=== PATIENT | female | born 1985 | race Caucasian/White ===

== ENCOUNTER → 2019-08-11 10:33 | Outpatient (BNVA) | payer BC, SELFPAY | PROVIDERS: Family Provider Physician Assistant; PCP Physician Assistant; Visit Provider Nurse Practitioner Women's Health | DX: Z01.89 Encounter for other specified special examinations (principal) | CPT/HCPCS: 84315 ==

== ENCOUNTER → 2019-08-15 10:49 | Outpatient (BNVA) | payer BC, SELFPAY | PROVIDERS: Family Provider Physician Assistant; PCP Physician Assistant; Referring Provider Nurse Practitioner Women's Health; Visit Provider Obstetrics & Gynecology | DX: Z34.91 Encounter for supervision of normal pregnancy, unspecified, first trimester (principal) | CPT/HCPCS: 76801; 76817 ==

== ENCOUNTER → 2019-08-31 11:00 | Outpatient (BNVA) | payer BC, SELFPAY | PROVIDERS: Family Provider Physician Assistant; PCP Physician Assistant; Visit Provider Obstetrics & Gynecology Female Pelvic Medicine and Reconstructive Surgery | DX: O09.891 Supervision of other high risk pregnancies, first trimester (principal); O09.291 Supervision of pregnancy with other poor reproductive or obstetric history, first trimester; Z86.32 Personal history of gestational diabetes; O20.9 Hemorrhage in early pregnancy, unspecified; Z3A.11 11 weeks gestation of pregnancy | CPT/HCPCS: 80307; 82950; 84315; 85027; 86592; 86762; 86803; 86850; 86900; 87086; 87340; 87806 ==

== ENCOUNTER → 2019-09-09 08:15 | Outpatient (BNVA) | payer BC, SELFPAY | PROVIDERS: Family Provider Physician Assistant; PCP Physician Assistant; Visit Provider Obstetrics & Gynecology Female Pelvic Medicine and Reconstructive Surgery | DX: O09.291 Supervision of pregnancy with other poor reproductive or obstetric history, first trimester (principal); Z86.32 Personal history of gestational diabetes; O09.891 Supervision of other high risk pregnancies, first trimester; O20.9 Hemorrhage in early pregnancy, unspecified; Z34.90 Encounter for supervision of normal pregnancy, unspecified, unspecified trimester; O99.810 Abnormal glucose complicating pregnancy | CPT/HCPCS: 82951; 82952 ==

== ENCOUNTER → 2019-09-12 09:24 | Outpatient (BNVA) | payer BC, SELFPAY | PROVIDERS: Family Provider Physician Assistant; PCP Physician Assistant; Visit Provider Obstetrics & Gynecology | DX: O09.891 Supervision of other high risk pregnancies, first trimester (principal); Z3A.12 12 weeks gestation of pregnancy | CPT/HCPCS: 84315; 87491; 87591; 88175 ==

== ENCOUNTER → 2019-10-05 16:16 | Outpatient (BNVA) | payer BC, MEDICAID, SELFPAY | PROVIDERS: Family Provider Physician Assistant; PCP Physician Assistant; Visit Provider Nurse Practitioner Women's Health | DX: Z01.89 Encounter for other specified special examinations (principal) | CPT/HCPCS: 84315 ==

== ENCOUNTER → 2019-11-03 08:55 | Outpatient (BNVA) | payer BC, MEDICAID, SELFPAY | PROVIDERS: Family Provider Physician Assistant; PCP Physician Assistant; Visit Provider Obstetrics & Gynecology | DX: Z36.89 Encounter for other specified antenatal screening (principal) | CPT/HCPCS: 76805 ==

== ENCOUNTER → 2019-11-08 09:43 | Outpatient (BNVA) | payer BC, MEDICAID, SELFPAY | PROVIDERS: Family Provider Physician Assistant; PCP Physician Assistant; Visit Provider Obstetrics & Gynecology | DX: O09.891 Supervision of other high risk pregnancies, first trimester (principal); O09.892 Supervision of other high risk pregnancies, second trimester; O28.3 Abnormal ultrasonic finding on antenatal screening of mother; O99.212 Obesity complicating pregnancy, second trimester; O09.292 Supervision of pregnancy with other poor reproductive or obstetric history, second trimester; Z86.32 Personal history of gestational diabetes; Z87.59 Personal history of other complications of pregnancy, childbirth and the puerperium; Z86.59 Personal history of other mental and behavioral disorders; Z3A.21 21 weeks gestation of pregnancy | CPT/HCPCS: 84315 ==

== ENCOUNTER → 2019-11-29 08:00 | Outpatient (BNVA) | payer BC, MEDICAID, SELFPAY | PROVIDERS: Family Provider Physician Assistant; PCP Physician Assistant; Visit Provider Obstetrics & Gynecology | DX: O09.892 Supervision of other high risk pregnancies, second trimester (principal); O99.810 Abnormal glucose complicating pregnancy | CPT/HCPCS: 82951; 82952; 84315 ==

== ENCOUNTER → 2019-12-27 09:49 | Outpatient (BNVA) | payer BC, MEDICAID, SELFPAY | PROVIDERS: Family Provider Physician Assistant; PCP Physician Assistant; Visit Provider Obstetrics & Gynecology | DX: O26.893 Other specified pregnancy related conditions, third trimester (principal); Z67.91 Unspecified blood type, Rh negative; O24.419 Gestational diabetes mellitus in pregnancy, unspecified control | CPT/HCPCS: 84315; 85027; 86850 ==

== ENCOUNTER → 2020-01-31 14:33 | Outpatient (BNVA) | payer BC, MEDICAID, SELFPAY | PROVIDERS: Family Provider Physician Assistant; PCP Physician Assistant; Visit Provider Obstetrics & Gynecology | DX: O09.893 Supervision of other high risk pregnancies, third trimester (principal); O24.415 Gestational diabetes mellitus in pregnancy, controlled by oral hypoglycemic drugs; O26.893 Other specified pregnancy related conditions, third trimester; Z67.91 Unspecified blood type, Rh negative; O99.213 Obesity complicating pregnancy, third trimester; Z3A.33 33 weeks gestation of pregnancy | CPT/HCPCS: 76816; 76819; 84315 ==

== ENCOUNTER → 2020-02-21 10:44 | Outpatient (BNVA) | payer BC, MEDICAID, SELFPAY | PROVIDERS: Family Provider Physician Assistant; PCP Physician Assistant; Visit Provider Obstetrics & Gynecology | DX: O09.892 Supervision of other high risk pregnancies, second trimester (principal); O24.415 Gestational diabetes mellitus in pregnancy, controlled by oral hypoglycemic drugs; Z67.91 Unspecified blood type, Rh negative | CPT/HCPCS: 84315; 87081 ==

== ENCOUNTER → 2020-02-28 10:01 | Outpatient (BNVA) | payer BC, MEDICAID, SELFPAY | PROVIDERS: Family Provider Physician Assistant; PCP Physician Assistant; Visit Provider Obstetrics & Gynecology | DX: O09.93 Supervision of high risk pregnancy, unspecified, third trimester; O24.415 Gestational diabetes mellitus in pregnancy, controlled by oral hypoglycemic drugs | CPT/HCPCS: 76816; 76819; 84315 ==

== ENCOUNTER → 2020-03-06 10:12 | Outpatient (BNVA) | payer BC, MEDICAID, SELFPAY | PROVIDERS: Family Provider Physician Assistant; PCP Physician Assistant; Visit Provider Obstetrics & Gynecology | DX: O24.415 Gestational diabetes mellitus in pregnancy, controlled by oral hypoglycemic drugs | CPT/HCPCS: 76816; 76819; 84315 ==

== ENCOUNTER → 2020-03-13 09:17 | Outpatient (BNVA) | payer BC, MEDICAID, SELFPAY | PROVIDERS: Family Provider Physician Assistant; PCP Physician Assistant; Visit Provider Obstetrics & Gynecology | DX: Z34.90 Encounter for supervision of normal pregnancy, unspecified, unspecified trimester (principal); O24.415 Gestational diabetes mellitus in pregnancy, controlled by oral hypoglycemic drugs | CPT/HCPCS: 76816; 76819 ==

== ENCOUNTER 2020-03-13 12:35 | Inpatient (IN) | payer BC, MEDICAID, SELFPAY ==
[2020-03-13] VITALS (77 sets, daily range): BP systolic 0–140; BP diastolic 0–87; PULSE 62–88; RESP 17–18; TEMP 36.6–37; O2SAT 91–99; BMI 36.0
[2020-03-13] MEDS: dextrose 5%-lactated ringers 1,000 ML 125 ML IV ×2 (13:28→22:40)
[2020-03-13 13:49] LABS: Glucose Point of Care 108 mg/dL (70-110)
[2020-03-13 13:51] LABS: Basophils % 0.1 %; Eosinophils % 0.3 %; Hematocrit 38.3 % (37.0-47.0); Hemoglobin 12.8 g/dL (11.5-15.3); Lymphocytes # 1.5 10^3/uL (0.8-4.8); Lymphocytes % 17.7 %; Mean Corpuscular HGB Conc 33.4 g/dL (30.0-36.0); Mean Corpuscular Hemoglobin 31.5 pg (28.0-34.0); Mean Corpuscular Volume 94.3 fL (81-99); Mean Platelet Volume 10.7 fL (7.4-10.4); Monocytes # 0.5 10^3/uL (0.2-0.9); Monocytes % 6.2 %; Neutrophils # 6.48 10^3/uL (1.8-7.7); Neutrophils % 75.5 %; Nucleated Red Blood Cells % 0 %; Platelet Count 223 10^3/cmm (130-400); Red Blood Count 4.06 10^6/uL (4.1-5.3); Red Cell Distribution Width 13.1 % (12.1-15.1); White Blood Count 8.6 10^3/uL (4.0-10.0)
[2020-03-13] MEDS: oxytocin 30 UNIT/500 ML BAG IV (14:15)
--- NOTE | 2020-03-13 17:38 | ANES.PREANE2 ---
Pre-Anesthetic Assessment Pre-Anesthetic Assessment: Height/Weight: Height 1.75 m Weight 110.677 kg Temp Pulse BP 97.9 F 73 128/79 03/13/20 13:02 03/13/20 17:34 03/13/20 17:34 Preop Diagnosis: IUP Proposed Procedure: Epidural Familial anesthetic complications: None Was Beta Josefina taken within 24 hours: N/A Last intake: Eating during exam Social: Social History: No alcohol and No tobacco Exam: Pre-Anes Outpt Exam: alert, oriented x 3, clear to auscultation bilaterally and regular rate & rhythm Airway: Cervical ROM: WNL MP: 2 Dentition: Full Metabolic: Metabolic: DM (gestational DM) Musc/skel: Comments: patient states she has lumbar stenosis with sciatic radiculopathy (B/L), patient informed of increased risk for epidural-associated nerve damage compared to baseline population. Agrees to proceed. Anesthetic Plan: ASA status: 2 Anesthesia: Regional (specify below) Risk of > 500 ml blood loss (7ml/kg in children): Yes, adequate IV access and fluids planned Meds/Allergies Current Medications: Current Medications Generic Name Dose Route Start Last Admin Trade Name Freq PRN Reason Stop Dose Admin Dextrose/Lactated Ringer's 1,000 mls @ 125 m ls/hr 03/13/20 13:15 03/13/20 13:28 Dextrose 5%-Lact ated Ringers IV 125 mls/hr .Q8H KVNG Administration Oxytocin 30 unit in 500 ml s @ 1 mls/hr 03/13/20 13:15 03/13/20 16:15 Pitocin IV 4 milliunit/min .Q24H KVNG 4 mls/hr Titration Protocol 1 MILLIUNIT/MIN PFSH Anesthesia PFSH: Medical History History of depression Patient denies significant medical history denies htn,dm,thyroid,dvt/pe,herpes Surgical History S/P tonsillectomy (~1994) as a child Family History Mother Hyperlipidemia Thyroid condition Hypertension Diabetes Grandmother Diabetes maternal Breast cancer maternal Stroke maternal Grandfather Hyperlipidemia maternal Hypertension maternal Denies family history of Anesthesia complication Social History Smoking and tobacco status: former smoker Quit status (tobacco): has quit using tobacco Year quit tobacco: 2011 Former quit date comment: smoked socially Alcohol intake: former Former alcohol use details: not during Other details last substance use: Denies drug use. Female Reproductive History: Date of last menstrual period: 06/14/19 : 2 Para: 1 Spontaneous abortions: No Data Anesthesia CBC & Chem 7: 03/13/20 13:10 Other Labs: Laboratory Results - last 48 hr 03/13/20 03/13/20 13:10 13:46 WBC 8.6 RBC 4.06 L Hgb 12.8 Hct 38.3 MCV 94.3 MCH 31.5 MCHC 33.4 RDW 13.1 Plt Count 223 MPV 10.7 H Neut % (Auto) 75.5 Lymph % (Auto) 17.7 [place] % (Auto) 6.2 Eos % (Auto) 0.3 Baso % (Auto) 0.1 Neut # (Auto) 6.48 Lymph # (Auto) 1.5 [place] # (Auto) 0.5 Eos # (Auto) 0.0 Baso # (Auto) 0.0 Nucleated RBC % (auto) 0 Nucleated RBCs # 0.0 POC Glucose 108 Cardiac Studies: No Data to Display
[2020-03-13 17:59] LABS: Glucose Point of Care 97 mg/dL (70-110)
[2020-03-13] MEDS: lactated ringers 1,000 ML 999 ML IV (19:19)
[2020-03-13 19:28] LABS: Glucose Point of Care 94 mg/dL (70-110)
--- NOTE | 2020-03-13 20:35 | ANES.PROC ---
Anesthesia Procedures Procedure/Date: 03/13/20 Epidural: Time Out Performed: Yes Consents Signed: Procedure Consent Consent: requested by attending/covering physician, from patient, risks and benefits reviewed and patient agrees to proceed Lumbar Level: L3-L4 Epidural position: sitting Epidural procedure: sterile prep of area, 1% lidocaine to numb the area, 18 g needle, neg for paresthesia, test dose given, 1.5% xylocaine 1:200k epi, 0.2% Ropivacaine bolus ml, placed PCEA, no systemic response, sterile dressing applied, L.U.D. no apparent complications and 0.2% Ropiavacaine @ mls/hr Additional Comments: CHARLEEN at 7cm. Cath placed 3 cm into epid space. Test dose lido 1.5% lido 5cc neg. Ropiv 0.2% 6cc and FEnt 100 mcg bolus. Pt tolerated well.
[2020-03-13 21:44] LABS: Glucose Point of Care 89 mg/dL (70-110)
[2020-03-13 23:54] LABS: Glucose Point of Care 91 mg/dL (70-110)
[2020-03-14] VITALS (28 sets, daily range): BP systolic 0–142; BP diastolic 0–72; PULSE 57–86; RESP 16–18; TEMP 36.4–37.1; O2SAT 98–99
--- NOTE | 2020-03-14 01:18 | PM.DELIVERY ---
Delivery Note: Date of delivery: March 14, 2020 Pre-delivery diagnoses: 1. Diet controlled gestational diabetes in third trimester 2. at 39-1/7 weeks gestation 3. Obesity in in third trimester 4. Rh-negative status in third trimester Post-delivery diagnoses: 1. Diet controlled gestational diabetes - delivered 2. at 39-1/7 weeks gestation 3. Obesity in - delivered 4. Rh- status in - delivered 5. Mild shoulder dystocia. 6. Viable male Procedure: Spontaneous vaginal delivery Op report anesthesia: Epidural Delivering Physician: Dr. Diogo Farmer Estimated blood loss (mL): 300 Pre-Delivery Course: Patient is a 34-year-old female 2, para 1-0-0-1 with an LMP of 06/14/2019 and an EDC of 03/20/2020 based on LMP and consistent with 9-week ultrasound, which placed her at 39-0/7 weeks gestation at the time of admission. She presented to labor and delivery at 12:35 on 03/13/2020 for induction of labor due to diet-controlled gestational diabetes. Cervix was initially 50% effaced and 4 cm dilated. She was started on Pitocin for induction. By the evening, she had become more uncomfortable and had epidural placed. By 21:01 she was 6 to 7 cm dilated with bulging membranes. Artificial rupture membranes was performed with clear fluid present. Following this, cervix shrunk to 4 cm dilation. She continued to progress and was found to be completely dilated by 00:27 on 03/14. monitoring was reassuring during the labor course. Blood sugar was monitored and with within expected ranges during labor. Delivery: Patient started pushing at 00:34 and delivered at 00:50 as a spontaneous vaginal delivery of an occiput anterior male over an intact perineum under epidural anesthesia. Following delivery of the 's head, one loop of nuchal cord was noted and reduced. The had retracted against the perineum as a turtle sign, consistent with shoulder dystocia. Trevon maneuver and suprapubic pressure was applied and with next contraction, the anterior shoulder delivered, which was the left shoulder. The rest of the baby then delivered atraumatically without difficulty. Baby was placed on the mother's abdomen where the cord was clamped. It was cut by the reported father of the baby. Baby was spontaneously crying and left in the care of the waiting nurses. Cord blood was obtained. Placenta delivered intact by simple expression at 00:50. The cervix was palpated and noted to be intact. The vagina was palpated and noted to be intact. The labia were inspected and she had a right periurethral laceration which was hemostatic and required no repair. She had a second-degree midline hymenal ring extending to perineum laceration which was repaired with 3-0 Vicryl suture. FINDINGS 1. Viable male infant weighing 9 pounds 8 ounces (4300 g) with a length of 21 inches and Apgars of 7 at 1 minute and 9 at 5 minutes. 2. Three-vessel cord with one loop of nuchal cord noted. 3. Normal-appearing placenta with an eccentric cord insertion. 4. Mild shoulder dystocia relieved with Trevon maneuver and suprapubic pressure. Post-Delivery Status: Mother and were left to recover in satisfactory condition. tubal was discussed with the patient and her partner. She is decided not to have the tubal done while in the hospital. Her and her partner are considering either her having a laparoscopic complete salpingectomy or him having a vasectomy. A&P Assessment and plan (1) Gestational diabetes mellitus, delivered, current hospitalization: Status: Acute (2) Rh negative status during in third trimester: Status: Acute (3) Obesity during , delivered: Status: Acute (4) Shoulder dystocia, delivered, current hospitalization: Status: Acute Coding Level of Care Code Acute Plugging Machine Operator for Chg Fwd Diagnoses Gestational diabetes mellitus, delivered, current hospitalization O24.429 Rh negative status during in third trimester O26.893; Z67.91 Obesity during , delivered O99.214 Shoulder dystocia, delivered, current hospitalization O66.0
[2020-03-14] MEDS: TRAMadol 50 mg Tablet PO (02:47)
[2020-03-14] MEDS: benzocaine-menthol 78 gm Canister 1 SPRAY TOPICAL (02:48)
--- NOTE | 2020-03-14 07:38 | PC.NURSE ---
Patient pushing since 33. At 004, head delivered and signs of shoulder dystocia were noticed. Per MD order, nurses placed patient in Trevon and Dominic Reed RN applied suprapubic pressure. Interventions lasted for 40 seconds and then viable baby boy was born at 0043 with apgars of 7,9. Mom and baby were both assessed and doing well.
[2020-03-14] MEDS: prenatal vitamin Capsule 1 CAP PO (08:17)
[2020-03-14] MEDS: docusate sodium 100 mg Capsule PO ×2 (08:17→19:16)
[2020-03-14 14:42] LABS: Hematocrit 30.9 % (37.0-47.0); Hemoglobin 10.4 g/dL (11.5-15.3); Mean Corpuscular HGB Conc 33.7 g/dL (30.0-36.0); Mean Corpuscular Hemoglobin 32.2 pg (28.0-34.0); Mean Corpuscular Volume 95.7 fL (81-99); Mean Platelet Volume 10.6 fL (7.4-10.4); Platelet Count 177 10^3/cmm (130-400); Red Blood Count 3.23 10^6/uL (4.1-5.3); Red Cell Distribution Width 13.2 % (12.1-15.1); White Blood Count 11.4 10^3/uL (4.0-10.0)
[2020-03-15] MEDS: acetaminophen 325 mg Tablet 650 MG PO (05:46)
[2020-03-15 05:51] VITALS: BP 146/85; PULSE 78; RESP 16; TEMP 36.7; O2SAT 100
[2020-03-15] MEDS: TRAMadol 50 mg Tablet PO (08:01)
[2020-03-15] MEDS: prenatal vitamin Capsule 1 CAP PO (09:08)
[2020-03-15] MEDS: docusate sodium 100 mg Capsule PO (09:08)
[2020-03-15 10:32] VITALS: BP 120/76; PULSE 66; RESP 15; TEMP 36.7
--- NOTE | 2020-03-15 11:16 | ANE.PACU2 ---
Inpatient post-anesthesia follow up: Airway intact: Yes Vital signs: Temperature 98.1 F Pulse Rate 66 Respiratory Rate 15 Blood Pressure 120/76 Pulse Oximetry 100 Oxygen Delivery Me thod Room Air Oxygen Flow Rate Fraction of Inspir ed Oxygen Hydration adequate: Yes Nausea and vomiting: No Pain level: 4 Mental status: Baseline Additional Comments: no headaches, no weakness/numbness in legs, no signs of infection at epidural site. Epidural numbed pelvic area, but she continued to feel her contractions with placement
--- NOTE | 2020-03-15 13:27 | PM.OBGYDC ---
Discharge Providers FURNACE ROASTER Date of Admission: 03/13/20 12:35 Date of Discharge: 03/15/20 Attending Provider at Admission: Jose Rosario MD Attending Provider at Discharge: Diogo Farmer MD Primary Care Provider: Aster Payne Diagnoses at Discharge Discharge Diagnosis (1) Gestational diabetes mellitus, delivered, current hospitalization: Status: Acute (2) Rh negative status during in third trimester: Status: Acute (3) Obesity during , delivered: Status: Acute (4) Shoulder dystocia, delivered, current hospitalization: Status: Resolved Reason for Visit Reason for Visit: Induction Hospital Course Hospital Course: Patient is a 34-year-old white female 2, now para 2-0-0-2 with an LMP of 06/14/2019 and an EDC of 03/20/2020 based on LMP and consistent with 9-week ultrasound, which placed her at 39-0/7 weeks gestation at the time of admission. She had presented to L&D on 03/13/2020 at 12:35 for induction of labor due to diet-controlled gestational diabetes. She was initially 50% effaced and 4 cm dilated. She was initially started on Pitocin for induction of labor. She became more uncomfortable through the day and by the evening had epidural placed. By 21:01 she was 6 to 7 cm dilated and had artificial rupture membranes with clear fluid performed at that time. She had progressed to complete dilation by 00:27 on 03/14. Blood sugar monitoring had been performed during labor with sugar values within the expected ranges. monitoring was reassuring during the labor course. She started pushing at 00:34 and delivered at 00:50 as a spontaneous vaginal delivery of an occiput anterior male infant over an intact perineum under epidural anesthesia. She had a mild shoulder dystocia relieved with Trevon maneuver and suprapubic pressure. The baby weighed 9 pounds 8 ounces (4300 g) with a length of 21 inches and Apgars of 7 at 1 minute and 9 at 5 minutes. She had a second-degree midline hymenal ring laceration that extended to the perineum. This was repaired with 3-0 Vicryl suture. Following delivery mother and did well. Patient had originally been considering sterilization following delivery but after discussion with her partner present, to wait on sterilization as they are discussing whether he will have a vasectomy or she will proceed with a laparoscopic complete salpingectomy. On day 1, patient was doing well. She was tolerating a regular diet without nausea or vomiting. She was ambulating without lightheadedness or dizziness. She denied any shortness of breath or chest pains. She was urinating without difficulty. She stated that her bleeding had slowed. She was requesting to go home. Physical Exam: See below. Plan Discharge to home. Discharge instructions discussed with patient. Patient to follow-up with Dr. Rosario for exam and for a 2-hour glucose tolerance test. She is to notify Dr. Rosario if she decides to have the sterilization. Information Peripartum Data: Infant Delivery Method: Vaginal Physical Exam Const: COMMON NORMALS: no acute distress, average body habitus, alert and well nourished GENERAL APPEARANCE: well developed ORIENTATION/CONSCIOUSNESS: Yes oriented to person, Yes oriented to place and Yes oriented to time GI: COMMON NORMALS: Soft to palpation, non-tender, No hepatosplenomegaly present and no masses (Except for nontender uterus, approx 2 fingerbreaths below umbili) AUSCULTATION: Yes normoactive bowel sounds PALPATION: Yes Soft to palpation, Yes No hepatosplenomegaly present and No Hernia present : EXTERNAL FEMALE EXAM: No Hernia present Extremity: COMMON NORMALS: no calf tenderness NARRATIVE EXTREMITY EXAM: Trace lower extremity edema bilaterally Neuro: SENSORIUM/ORIENTATION: Yes alert, Yes oriented to person, Yes oriented to place and Yes oriented to time Psych: COMMON NORMALS: normal affect MOOD & AFFECT: Yes euthymic mood Urinary Catheter Management^: Banuelos: Cath Placed During This Visit: yes Urinary Catheter Date of Insertion: 03/13/20 Urinary Catheter Time of Insertion: 21:15 Discharge Data Data Completed and Pending: Labs from last 24 hours 03/14/20 03/14/20 03/13/20 14:00 14:00 13:10 WBC 11.4 H RBC 3.23 L Hgb 10.4 L Hct 30.9 L MCV 95.7 MCH 32.2 MCHC 33.7 RDW 13.2 Plt Count 177 MPV 10.6 H Blood Type O Negative Rho(D) Type Negative Antibody Screen Positive Antibody Identific ation Anti-D Screen Negative Vitals: Last Vital Signs Temp 98.1 F 03/15/20 10:32 Pulse 66 03/15/20 10:32 Resp 15 03/15/20 10:32 BP 120/76 03/15/20 10:32 Pulse Ox 100 03/15/20 05:51 Discharge Plan Discharge Patient Disposition: Home Condition: Stable Prescriptions: New ibuprofen 800 mg Tablet 800 mg PO TID PRN (Reason: pain) Qty: 40 RF: 0 Continued Prenate Elite (iron asp glyc) 20 mg iron- 1 mg tablet 1 tab PO QDAY Qty: 90 RF: 3 acetaminophen [Tylenol] 325 mg capsule 325 mg PO QID PRN (Reason: pain) RF: 0 Discontinued famotidine [Pepcid] 20 mg tablet 20 mg PO BID RF: 0 Discharge Orders: Discharge Order (Routine); Ordered 03/15/20 Ordered By: Diogo Farmer Referrals: Jose Rosario MD [Physician] - 04/27/20 7:45 am (* Your 6 week post appointment is on 04/27/2020 at 7:45am. You will have a 2 hour glucose test at this appointment please do not eat or drink after midnight) Discharge Diet: Regular Discharge Activity: Resume usual activity Patient Instructions: Ibuprofen (By mouth), Bleeding (DC), OB Discharge Report, OB Food/Drug Interaction Guide, OB Home Care, OB Proud Parent Packet, OB Vaginal Deliveries - [facility] Discharge Date/Time: 03/15/20 15:17 Discharge Attestations FURNACE ROASTER Time Spent in Discharge Care*: less than 30 min Coding Level of Care Code Acute Forensics Analyst for Chg Fwd Exam Expanded Problem Focused Diagnoses Gestational diabetes mellitus, delivered, current hospitalization O24.429 Rh negative status during in third trimester O26.893; Z67.91 Obesity during , delivered O99.214 Shoulder dystocia, delivered, current hospitalization O66.0
[2020-03-15 14:26] VITALS: BP 121/80; PULSE 76; RESP 15; TEMP 36.6; O2SAT 97
== END 2020-03-15 15:17 | disposition home or self-care (01) | DRG 806 ==
PROVIDERS: Obstetrics & Gynecology; Admitting Provider Obstetrics & Gynecology; Family Provider Physician Assistant; PCP Physician Assistant; Visit Provider Obstetrics & Gynecology
DX: O24.420 Gestational diabetes mellitus in childbirth, diet controlled (principal); O36.0930 Maternal care for other rhesus isoimmunization, third trimester, not applicable or unspecified; Z37.0 Single live birth; O99.214 Obesity complicating childbirth; O66.0 Obstructed labor due to shoulder dystocia; O69.2XX0 Labor and delivery complicated by other cord entanglement, with compression, not applicable or unspecified; O70.1 Second degree perineal laceration during delivery; Z3A.39 39 weeks gestation of pregnancy
CPT/HCPCS: 12345; 36415; 36416; 36430; 51702; 59025; 59409; 82962; 84315; 85025; 85027; 85460; 86850; 86870; 86900; 90384; J2795; J3010

== ENCOUNTER → 2020-05-15 08:05 | Outpatient (BNVA) | payer BC, MEDICAID, SELFPAY | PROVIDERS: Family Provider Physician Assistant; PCP Physician Assistant; Visit Provider Obstetrics & Gynecology | DX: Z72.51 High risk heterosexual behavior (principal); O24.439 Gestational diabetes mellitus in the puerperium, unspecified control; Z32.00 Encounter for pregnancy test, result unknown | CPT/HCPCS: 81025; 82947 ==

== ENCOUNTER → 2020-05-18 12:17 | Outpatient (BNVA) | payer BC, MEDICAID, SELFPAY | PROVIDERS: PCP Physician Assistant; Visit Provider Obstetrics & Gynecology | DX: Z11.59 Encounter for screening for other viral diseases (principal) | CPT/HCPCS: 87635 ==

== ENCOUNTER → 2021-04-04 11:36 | Outpatient (BNVA) | payer BC, SELFPAY | PROVIDERS: PCP Physician Assistant; Visit Provider Specialist | DX: M25.531 Pain in right wrist (principal) | CPT/HCPCS: 73110 ==

== ENCOUNTER 2021-04-04 12:02 | Outpatient (CLI) | payer BC, SELFPAY ==
[2021-04-04 12:44] LABS: Alanine Aminotransferase 11 U/L (0-33); Albumin Level 4.3 g/dL (3.5-5.2); Alkaline Phosphatase 66 IU/L (35-105); Anion Gap 13.1 (5-19); Aspartate Amino Transferase 15 U/L (0-32); Blood Urea Nitrogen 12 mg/dL (6-20); C Reactive Protein 2.7 mg/L (0.0-4.9); Calcium 9.2 mg/dL (8.5-10.5); Carbon Dioxide 27 mmol/L (22-29); Chloride 101 mmol/L (98-107); Glomerular Filtration Rate 113.8 mL/min (90-130); Glucose 82 mg/dL (65-115); Osmolality Calculated 283 mOsm/kg (285-295); Potassium 4.1 mmol/L (3.5-5.1); Sodium 137 mmol/L (136-145); Total Bilirubin 0.2 mg/dL (0.15-1.2); Total Protein 7.3 g/dL (6.6-8.7)
[2021-04-05 14:55] LABS: CENTROMERE B ANTIBODY <1.0 NEG AI (<1.0 NEG); COMPLEMENT COMPONENT C3C 157 mg/dL (83-193); COMPLEMENT COMPONENT C4C 36 mg/dL (15-57); COMPLEMENT, TOTAL (CH50) >60 U/mL (31-60); Cyclic Citrullinated Peptide <16 UNITS; JO-1 ANTIBODY <1.0 NEG AI (<1.0 NEG); RNP ANTIBODY <1.0 NEG AI (<1.0 NEG); SCL-70 ANTIBODY <1.0 NEG AI (<1.0 NEG); SJOGREN'S ANTIBODY (SS-A) <1.0 NEG AI (<1.0 NEG); SM ANTIBODY <1.0 NEG AI (<1.0 NEG); SS-B <1.0 NEG AI (<1.0 NEG); THYROID PEROXIDASE ANTIBODIES 430 IU/mL (<9)
[2021-04-05 16:53] LABS: ANA SCREEN, IFA NEGATIVE (NEGATIVE)
[2021-04-09 15:48] LABS: DNA AB (DS) CRITHIDIA,IFA NEGATIVE (NEGATIVE)
== END 2021-04-04 12:03 | disposition home or self-care (01) ==
PROVIDERS: PCP Physician Assistant; Visit Provider Specialist
DX: M25.539 Pain in unspecified wrist (principal)
CPT/HCPCS: 36415; 80053; 86140; 86160; 86162; 86235; 86255; 86376; 86431

== ENCOUNTER → 2021-05-02 09:04 | Outpatient (BNVA) | payer BC, MEDICAID, SELFPAY | PROVIDERS: PCP Physician Assistant; Visit Provider Internal Medicine | DX: M25.531 Pain in right wrist (principal); R76.8 Other specified abnormal immunological findings in serum; M47.816 Spondylosis without myelopathy or radiculopathy, lumbar region; Z11.59 Encounter for screening for other viral diseases; Z11.1 Encounter for screening for respiratory tuberculosis; Z79.899 Other long term (current) drug therapy | CPT/HCPCS: 36415; 80053; 82306; 82550; 82607; 82728; 82784; 82955; 83516; 83540; 83735; 84100; 84443; 85025; 85651; 86140; 86200; 86480; 86704; 86803; 87340; 99204 ==

== ENCOUNTER 2021-05-02 10:37 | Outpatient (CLI) | payer BC, SELFPAY ==
--- NOTE | 2021-05-02 10:48 | XR_ITS ---
WS: [email or web address] FOOT LEFT TECHNIQUE: 2 views of the left foot CLINICAL INFORMATION: PAIN IN UNSPECIFIED JOINT COMPARISON: None. FINDINGS: No evidence of acute fracture or dislocation. Normal tarsal metatarsal alignment. Normal calcaneus. N ormal visualized talar dome. No erosive changes. XR/XR foot LT 2V [id number] IMPRESSION: Normal left foot.
--- NOTE | 2021-05-02 10:48 | XR_ITS ---
WS: [email or web address] FOOT RIGHT TECHNIQUE: 2 views of the right foot CLINICAL INFORMATION: PAIN IN UNSPECIFIED JOINT COMPARISON: None. FINDINGS: No evidence of acute fracture or dislocation. Normal tarsal metatarsal alignment. Normal calcaneus. N ormal visualized talar dome. No erosive changes. XR/XR foot RT 2V [id number] IMPRESSION: Normal right foot.
--- NOTE | 2021-05-02 10:50 | XR_ITS ---
WS: [id number] LUMBAR SPINE TECHNIQUE: 3 views of the lumbar spine CLINICAL INFORMATION: PSORIASIS COMPARISON: 2019 FINDINGS: Five [id number] lumbar vertebral bodies. Mild lumbar curve convex left. Mild disc space narrowin g L4-L5 and L5-S1. No acute compression fractures. Mild facet arthropathy L5-S1. Trace retrolisthesis L2 on L3, L3 on L4, and L4 on L5. XR/XR lumbar spine 2-3V* [id number] IMPRESSION: 1. Mild lumbar curve. No acute compression fractures. 2. Mild disc space narrowing worse at L4-L5 and L5-S1. 3. Trace retrolisthesis L2 on L3, L3 on L4, and L4 on L5.
--- NOTE | 2021-05-02 10:50 | XR_ITS ---
WS: [email or web address] TECHNIQUE: 2 views of the left hand CLINICAL INFORMATION: PAIN IN UNSPECIFIED JOINT COMPARISON: None. FINDINGS: Normal metacarpals. Normal MCP joint. Metacarpal heads are normal in appearance. Normal PIP and DIP j oints. No evidence of acute fracture or dislocation. Radiocarpal joint: Normal. Carpal bones: Normal. XR/XR hand LT 2V [id number] IMPRESSION: Normal left hand.
--- NOTE | 2021-05-02 10:50 | XR_ITS ---
WS: [email or web address] TECHNIQUE: 2 views of the right hand CLINICAL INFORMATION: PAIN IN UNSPECIFIED JOINT COMPARISON: None. FINDINGS: Normal metacarpals. Normal MCP joint. Metacarpal heads are normal in appearance. Normal PIP and DIP j oints. No evidence of acute fracture or dislocation. Radiocarpal joint: Normal. Carpal bones: Normal. XR/XR hand RT 2V [id number] IMPRESSION: Normal right hand.
--- NOTE | 2021-05-02 10:51 | XR_ITS ---
WS: [email or web address] SI JOINTS TECHNIQUE: 3 views of the sacroiliac joints CLINICAL INFORMATION: PSORIASIS COMPARISON: None. FINDINGS: Mild sclerosis left sacroiliac joints likely due to sacroiliitis. Minimal sclerosis right sacroiliac joint. No visualized erosions. Pelvic phleboliths. Normal sacrum. XR/XR sacroiliac jts m 3V [id number] IMPRESSION: Slight chronic appearing sclerosis left greater than right sacroiliac joints li carlos due to sacroiliitis. No visualized erosions.
== END 2021-05-02 10:38 | disposition home or self-care (01) ==
PROVIDERS: Visit Provider Internal Medicine
DX: R76.8 Other specified abnormal immunological findings in serum (principal); M25.50 Pain in unspecified joint; L40.9 Psoriasis, unspecified
CPT/HCPCS: 72100; 72202; 73120; 73620

== ENCOUNTER 2021-08-05 10:25 | Outpatient (CLI) | payer BC, MEDICAID, SELFPAY ==
[2021-08-05 10:51] LABS: Basophils % 0.4 %; Eosinophils # 0.1 10^3/uL (0.0-0.8); Hemoglobin 14.7 g/dL (11.5-15.3); Lymphocytes # 1.5 10^3/uL (0.8-4.8); Lymphocytes % 30.5 %; Mean Corpuscular HGB Conc 33.4 g/dL (30.0-36.0); Mean Corpuscular Hemoglobin 30.9 pg (28.0-34.0); Mean Corpuscular Volume 92.6 fl (81-99); Mean Platelet Volume 9.8 fL (7.4-10.4); Monocytes # 0.3 10^3/uL (0.2-0.9); Monocytes % 6.6 %; Neutrophils # 3.07 10^3/uL (1.8-7.7); Neutrophils % 61.3 %; Nucleated Red Blood Cells % 0 %; Platelet Count 227 10^3/cmm (130-400); Red Blood Count 4.75 10^6/uL (4.1-5.3); Red Cell Distribution Width 11.6 % (12.1-15.1)
[2021-08-05 11:07] LABS: Alanine Aminotransferase 26 U/L (0-33); Albumin Level 4.4 g/dL (3.5-5.2); Alkaline Phosphatase 74 IU/L (35-105); Anion Gap 16.4 (5-19); Aspartate Amino Transferase 19 U/L (0-32); Blood Urea Nitrogen 19 mg/dL (6-20); C Reactive Protein 2.3 mg/L (0.0-4.9); Calcium 8.8 mg/dL (8.5-10.5); Carbon Dioxide 26 mmol/L (22-29); Chloride 100 mmol/L (98-107); Globulin 2.9 g/dL (1.3-4.6); Glomerular Filtration Rate 113.8 mL/min (90-130); Glucose 71 mg/dL (65-115); Osmolality Calculated 287 mOsm/kg (285-295); Potassium 4.4 mmol/L (3.5-5.1); Sodium 138 mmol/L (136-145); Total Bilirubin 0.4 mg/dL (0.15-1.2); Total Protein 7.3 g/dL (6.6-8.7)
[2021-08-05 11:24] LABS: Erythrocyte Sedimentation Rate 14 mm/hr (0-15)
== END 2021-08-05 10:26 | disposition home or self-care (01) ==
LOC: LAB 10:31
PROVIDERS: PCP Physician Assistant; Visit Provider Internal Medicine
DX: M25.50 Pain in unspecified joint (principal); Z79.899 Other long term (current) drug therapy
CPT/HCPCS: 36415; 80053; 85025; 85651; 86140

== ENCOUNTER 2021-09-25 09:24 | Outpatient (CLI) | payer BC, MEDICAID, SELFPAY ==
--- NOTE | 2021-09-25 09:45 | MR_ITS ---
WS: [email or web address] MRI HEAD WITH CONTRAST TECHNIQUE: Sagittal T1, T2 axial, T2 axial FLAIR, axial susceptibility weighted imaging, axial diffus ion weighted images, and coronal T2 images were obtained. Pre and post-T1 axial and post T1 coronal i mages. ADC and FSPGR images. CLINICAL INFORMATION: FOOT DROP COMPARISON: None. FINDINGS: No evidence of restricted diffusion to suggest acute ischemia. Ventricular system and basal cisterns are patent. A few tiny foci of T2 hyperintensity in the frontal subcortical white matter nonspecific in a patient this age but can be seen with migraine headaches. Normal posterior fossa. Normal vascula r flow voids at the skull base. No extra-axial fluid collections. No evidence of mass or mass effect. Mild mucosal thickening in the paranasal sinuses. Small amount of fluid in the RIGHT maxillary sinus . Mastoid air cells well aerated. No hemosiderin on the susceptibly weighted images. Normal optic chiasm and pituitary infundibulum. No abnormal gadolinium enhancement. Normal dural venous sinuses. MR/MR head wo/w con [id number] IMPRESSION: 1. No evidence of restricted diffusion to suggest acute ischemia. 2. One or 2 tiny foci of T2 hyperintensity in the frontal subcortical white ma tter nonspecific in a patient this age but can be seen with migraine headaches. This is of doubtful clinical significance. 3. No hemosiderin on susceptibly weighted images. 4. No abnormal gadolinium enhancement. 5. No other significant findings.
--- NOTE | 2021-09-25 09:45 | MR_ITS ---
WS: [email or web address] MRI CERVICAL SPINE NONCONTRAST AND CONTRAST TECHNIQUE: Sagittal T1, T2 and STIR imaging. Axial T2, gradient, and fiesta imaging. Post gadolinium images obtained with fat saturation technique. CLINICAL INFORMATION: FOOT DROP COMPARISON: None. FINDINGS: Straightening of the normal cervical lordosis. Cord signal is normal. Mild disc bulging C3-C4 C4-C5 C 5-C6 and C6-C7. Cord signal is normal. No abnormal gadolinium enhancement. No enhancing lesions in th e cervical cord. No suspicious lesions in the cervical cord. No cord atrophy. C2-C3: Normal. C3-C4: Mild disc bulging with tiny annular fissure. Spinal canal and foramen are patent. Mild facet a rthropathy. C4-C5: Mild disc bulging with a tiny central protrusion and small annular fissure. Mild facet arthrop athy. Spinal canal and foramen are patent. C5-C6: Mild disc bulging with a small annular fissure. Mild facet arthropathy. Spinal canal and shila en are patent. C6-C7: Mild disc bulging with a tiny shallow central protrusion. Mild LEFT and no significant RIGHT f oraminal narrowing. Spinal canal is patent. C7-T1: Normal. Visualized brain stem structures: Normal. Prevertebral soft tissues: Normal. MR/MR cervical spine wo/w [id number] IMPRESSION: 1. Straightening of the normal cervical lordosis. Cord signal is normal. 2. No abnormal gadolinium enhancement. No abnormal enhancing lesions in the ce rvical cord. 3. Tiny shallow central protrusions at C3-C4 C4-C5 C5-C6 and C6-C7 without sig nificant central canal stenosis. 4. Mild LEFT C6-C7 bony foraminal narrowing.
[2021-09-25] MEDS: gadobenate dimeglumine 20 mL vial IV (11:33)
== END 2021-09-25 09:25 | disposition home or self-care (01) ==
PROVIDERS: PCP Physician Assistant; Visit Provider Internal Medicine
DX: M21.379 Foot drop, unspecified foot (principal); M50.21 Other cervical disc displacement, high cervical region
CPT/HCPCS: 70553; 72156

== ENCOUNTER → 2022-01-16 08:45 | Outpatient (BNVA) | payer BC, MEDICAID, SELFPAY | PROVIDERS: PCP Physician Assistant; Visit Provider Specialist | DX: G62.9 Polyneuropathy, unspecified (principal); M21.371 Foot drop, right foot; R76.8 Other specified abnormal immunological findings in serum | CPT/HCPCS: 36415; 80503; 82607; 82945; 84155; 84157; 84165; 85651; 86038; 86334; 86592; 87070; 87075; 87205; 89050 ==

== ENCOUNTER 2022-01-28 09:37 | Outpatient (CLI) | payer BC, MEDICAID, SELFPAY ==
[2022-01-28 10:13] LABS: Basophils % 0.2 %; Eosinophils # 0.1 10^3/uL (0.0-0.8); Eosinophils % 1.2 %; Hematocrit 38.3 % (37.0-47.0); Hemoglobin 13.6 g/dL (11.5-15.3); Lymphocytes # 1.6 10^3/uL (0.8-4.8); Lymphocytes % 27.8 %; Mean Corpuscular HGB Conc 35.5 g/dL (30.0-36.0); Mean Corpuscular Hemoglobin 32.1 pg (28.0-34.0); Mean Corpuscular Volume 90.3 fl (81-99); Mean Platelet Volume 9.3 fL (7.4-10.4); Monocytes # 0.4 10^3/uL (0.2-0.9); Monocytes % 7.2 %; Neutrophils # 3.73 10^3/uL (1.8-7.7); Neutrophils % 63.4 %; Nucleated Red Blood Cells % 0 %; Platelet Count 209 10^3/cmm (130-400); Red Blood Count 4.24 10^6/uL (4.1-5.3); Red Cell Distribution Width 11.9 % (12.1-15.1); White Blood Count 5.9 10^3/uL (4.0-10.0)
[2022-01-28 10:25] LABS: Erythrocyte Sedimentation Rate 5 mm/hr (0-15)
[2022-01-28 10:29] LABS: Alanine Aminotransferase 15 U/L (0-33); Albumin Level 4.4 g/dL (3.5-5.2); Alkaline Phosphatase 64 IU/L (35-105); Aspartate Amino Transferase 16 U/L (0-32); Blood Urea Nitrogen 15 mg/dL (6-20); C Reactive Protein 12.9 mg/L (0.0-4.9); Calcium 8.5 mg/dL (8.5-10.5); Carbon Dioxide 26 mmol/L (22-29); Chloride 103 mmol/L (98-107); Globulin 3.2 g/dL (1.3-4.6); Glomerular Filtration Rate 113.1 mL/min (90-130); Glucose 79 mg/dL (65-115); Osmolality Calculated 286 mOsm/kg (285-295); Sodium 138 mmol/L (136-145); Total Bilirubin 0.4 mg/dL (0.15-1.2); Total Protein 7.6 g/dL (6.6-8.7)
== END 2022-01-28 09:38 | disposition home or self-care (01) ==
LOC: LAB 09:40
PROVIDERS: PCP Physician Assistant; Visit Provider Internal Medicine
DX: M25.50 Pain in unspecified joint (principal); R76.8 Other specified abnormal immunological findings in serum; Z79.899 Other long term (current) drug therapy
CPT/HCPCS: 36415; 80053; 85025; 85651; 86140

== ENCOUNTER 2022-02-19 13:18 | Outpatient (CLI) | payer BC, MEDICAID, SELFPAY ==
--- NOTE | 2022-02-19 13:15 | MR_ITS ---
WS: [email or web address] MRI LUMBAR SPINE NONCONTRAST HISTORY: M47.816 - Spondylosis without myelopathy or radiculopathy... COMPARISON: 01/03/2019 TECHNIQUE: Sagittal and axial multisequence imaging is submitted. Disc bulging with a central protrusion at T11-12. No cord contact. Normal lumbar alignment with no compression fractures or marrow edema. Mild straightening of the normal lumbar lordosis. 2 mm retrolisthesis of L4. Disc spaces are mildly n arrowed and desiccated throughout. No marrow edema or fracture. Conus terminates normally at L1. L1-L2: Normal. L2-L3: Mild osteophytic ridging and facet arthritis. No stenosis. L3-L4: Mild annular disc bulge with a central disc protrusion and osteophyte. Mild bilateral foramina l narrowing. Mild encroachment upon the subarticular recesses bilaterally. L4-L5: Large central disc protrusion extends caudad to the disc level. Disc extends over length of 9. 6 mm and does contact the traversing L5 nerve roots. Marked narrowing of the subarticular recesses an d mild central and foraminal narrowing. L5-S1: Mild disc bulging with a central disc protrusion. Disc or asymmetric bulging extends into the LEFT foramen. There is disc contact on the S1 nerve roots but greatest on the LEFT. Mild bilateral tinoco barticular recess and LEFT foraminal stenosis. Moderate facet joint arthritis. MR/MR lumbar spine wo con* [id number] IMPRESSION: 1. Large central disc protrusion at L4-5 extends caudad to the disc level. Sig nificant contact and displacement of the traversing L5 nerve roots. 2. Marked stenosis subarticular recesses at L4-5 greatest on the LEFT with mil d central and bilateral foraminal narrowing also. 3. Small central disc protrusion and additional disc protrusion or disc bulgin g extending into the LEFT foramen at L5-S1. Disc contacts the S1 nerve roots bi laterally but greatest on the LEFT. Mild bilateral subarticular recess and LEFT foraminal stenosis at L5-S1. 4. Mild subarticular recess and foraminal stenosis at L3-4.
== END 2022-02-19 13:19 | disposition home or self-care (01) ==
LOC: RAD 13:19
PROVIDERS: PCP Physician Assistant; Visit Provider Specialist
DX: M47.816 Spondylosis without myelopathy or radiculopathy, lumbar region (principal); M51.26 Other intervertebral disc displacement, lumbar region; M48.061 Spinal stenosis, lumbar region without neurogenic claudication
CPT/HCPCS: 72148

== ENCOUNTER → 2022-02-20 09:12 | Outpatient (BNVA) | payer BC, MEDICAID, SELFPAY | PROVIDERS: PCP Physician Assistant; Visit Provider Physician Assistant | DX: M47.816 Spondylosis without myelopathy or radiculopathy, lumbar region (principal) | CPT/HCPCS: 72110 ==

== ENCOUNTER → 2022-06-27 09:42 | Outpatient (BNVA) | payer BC, MEDICAID, SELFPAY | PROVIDERS: PCP Physician Assistant; Visit Provider Obstetrics & Gynecology | DX: N39.0 Urinary tract infection, site not specified (principal); Z30.09 Encounter for other general counseling and advice on contraception | CPT/HCPCS: 81000 ==

== ENCOUNTER 2022-07-30 07:51 | Day surgery (SDC) | payer BC, MEDICAID, SELFPAY ==
[2022-07-28 10:22] VITALS: BMI 26.6
--- NOTE | 2022-07-28 10:39 | ANES.PREANE2 ---
Pre-Anesthetic Assessment Height/Weight: Height 1.75 m Weight 81.647 kg Preop Diagnosis: Desire permanent sterilization Operation Date: 07/30/22 09:30 Proposed Procedures p Laparoscopic bilateral salpingectomy 56772,Z30.2(Bilateral) - Jose Rosario MD Familial anesthetic complications: Epidural didn't work Social No alcohol and No tobacco Exam alert, oriented x 3, clear to auscultation bilaterally and regular rate & rhythm Airway Mallampati: Class II Dentition: full Pulmonary None reported CV/HEM None reported None reported Hepatic None reported GI None reported Metabolic Diabetes Mellitus (gestational) [facility] [place] Rheumatoid Arthritis Neuropsych Neuropathy Anesthetic Plan ASA status: 2 Anesthesia: General Risk of > 500 ml blood loss (7ml/kg in children): No Medications/Allergies Home Medications Medication Instructions Recorded Confirmed Last Taken Type multivitamin 1 tab PO DAILY 05/02/21 07/28/22 07/28/22 History meloxicam 15 mg tablet 15 mg PO DAILY #90 tabs 02/10/22 07/28/22 07/28/22 Rx venlafaxine 75 mg tablet 150 mg PO DAILY 02/10/22 07/28/22 07/28/22 History cholecalciferol (vitamin D3) 50 50 mcg PO DAILY 07/28/22 07/28/22 07/28/22 History mcg (2,000 unit) capsule tumeric 100 mg-madhavi 150 mg-olive cap PO 07/28/22 07/28/22 07/28/22 History 50 mg-oreg 150 mg-caprylate capsule Allergies Allergy/AdvReac Type Severity Reaction Status Date / Time No Known Allergies Allergy Verified 07/28/22 08:55 [facility] Anesthesia Medical History (Updated 06/27/22 @ 11:39 by Jose Rosario MD) History of depression Patient denies significant medical history denies htn,dm,thyroid,dvt/pe,herpes examination following vaginal delivery Surgical History S/P tonsillectomy (~1994) as a child Family History Mother Hyperlipidemia Thyroid condition Hypertension Diabetes Grandmother Diabetes maternal Breast cancer maternal Stroke maternal Grandfather Hyperlipidemia maternal Hypertension maternal Denies family history of Anesthesia complication Social History Smoking and tobacco status: never smoked Alcohol intake: never History of recent travel: No Female Reproductive History Date of last menstrual period: 07/26/22 Data Anesthesia Cardiac Studies: No Data to Display
[2022-07-28 10:52] LABS: Basophils % 0.2 %; Eosinophils # 0.1 10^3/uL (0.0-0.8); Eosinophils % 1.2 %; Hemoglobin 13.8 g/dL (11.5-15.3); Lymphocytes # 1.3 10^3/uL (0.8-4.8); Lymphocytes % 30.7 %; Mean Corpuscular HGB Conc 33.7 g/dL (30.0-36.0); Mean Corpuscular Hemoglobin 31.7 pg (28.0-34.0); Mean Corpuscular Volume 94.3 fl (81-99); Mean Platelet Volume 8.9 fL (7.4-10.4); Monocytes # 0.3 10^3/uL (0.2-0.9); Monocytes % 7.2 %; Neutrophils # 2.52 10^3/uL (1.8-7.7); Neutrophils % 60.5 %; Nucleated Red Blood Cells % 0 %; Platelet Count 249 10^3/cmm (130-400); Red Blood Count 4.35 10^6/uL (4.1-5.3); Red Cell Distribution Width 12.2 % (12.1-15.1); White Blood Count 4.2 10^3/uL (4.0-10.0)
[2022-07-28 11:06] LABS: Alanine Aminotransferase 10 U/L (0-33); Albumin Level 4.5 g/dL (3.5-5.2); Alkaline Phosphatase 47 U/L (35-105); Aspartate Amino Transferase 13 U/L (0-32); Blood Urea Nitrogen 13 mg/dL (6-20); Calcium 8.9 mg/dL (8.5-10.5); Carbon Dioxide 28 mmol/L (22-29); Chloride 101 mmol/L (98-107); Globulin 2.6 g/dL (1.3-4.6); Glomerular Filtration Rate 113.1 mL/min (90-130); Glucose 85 mg/dL (65-115); Osmolality Calculated 283 mOsm/kg (285-295); Sodium 137 mmol/L (136-145); Total Bilirubin 0.3 mg/dL (0.15-1.2); Total Protein 7.1 g/dL (6.6-8.7)
[2022-07-28 11:27] LABS: Add Urine Culture? No; Add Urine Microscopic? YES; Bilirubin Urine Neg (Negative); Blood Urine 3+ (Negative); Glucose Urine UA Norm (Normal); Ketones Urine Negative (Negative); Leukocyte Esterase Urine Negative (Negative); Nitrate Urine Negative (Negative); Protein Urine Neg (Negative); RBC Urine RARE /hpf (0-2); Squamous Epithelial Cell Urine 0-4 /hpf (0-5); Urine Appearance Clear (CLEAR); Urine Color Light yellow (Yellow); Urobilinogen Urine Neg (Negative); pH Urine 7 (5-7)
[2022-07-30] VITALS (21 sets, daily range): BP systolic 128–169; BP diastolic 78–113; PULSE 63–88; RESP 12–18; TEMP 36.3–37.2; O2SAT 93–100
[2022-07-30] MEDS: sodium chloride 0.9% 500 ML IV (08:40)
[2022-07-30] MEDS: sodium chloride 0.9% 1,000 ML 30 ML IV (08:46)
[2022-07-30] MEDS: scopolamine 1.5 Patch 1 PATCH TRANSDERMA (08:46)
--- NOTE | 2022-07-30 09:05 | P.ANESUD_ITS ---
Pre-Anesthetic Update Pre-Anesthetic Assessment: Date of Surgery/Procedure: 07/30/22 Preop Maria Alejandra gnosis: Desire permanent sterilization Proposed Procedure: Operation Date: 07/30/22 09:20 Proposed Procedures p Laparoscopic bilateral salpingectomy 79315,Z30.2(Bilateral) - Jose Rosario MD Any changes to Pre-Anesthetic Assessment?: No Last Intake: Intake Last Liquid Date 07/29/22 Last Liquid Time 22:30 Last Solid Date 07/29/22 Last Solid Time 22:30 Labs Last 48hrs: Short CBC 07/28/22 Range/Units 10:30 WBC 4.2 (4.0-10.0) 10^3/ uL Hgb 13.8 (11.5-15.3) g/dL Hct 41.0 (37.0-47.0) % MCV 94.3 (81-99) fl Plt Count 249 (130-400) 10^3/c mm Neut % (Auto) 60.5 % Neut # (Auto) 2.52 (1.8-7.7) 10^3/u L BMP 07/28/22 10:30 Sodium 137 Potassium 4.0 Chloride 101 Carbon Dioxide 28 BUN 13 Creatinine 0.6 Glucose 85 Calcium 8.9 Liver Function 07/28/22 Range/Units 10:30 Total Bilirubin 0.3 (0.15-1.2) mg/dL AST 13 (0-32) U/L ALT 10 (0-33) U/L Alkaline Phosphata se 47 (35-105) U/L Albumin 4.5 (3.5-5.2) g/dL Urine 07/28/22 Range/Units 10:46 Urine Color Light yellow (Yellow) Urine Appearance Clear (CLEAR) Urine pH 7 (5-7) Ur Specific Gravit y 1.010 (1.005-1.030) Urine Protein Neg (Negative) Urine Glucose (UA) Norm (Normal) Urine Ketones Negative (Negative) Urine Nitrate Negative (Negative) Urine Bilirubin Neg (Negative) Ur Leukocyte Ashely ase Negative (Negative) Urine RBC Rare (0-2) /hpf Urine WBC None (0-5) /hpf Blood Bank 07/28/22 10:30 Blood Type O Negative Rho(D) Type Negative Antibody Screen Negative Vitals: Temperature 97.8 F 07/30/22 08:17 Temperature Source Temporal Artery S can 07/30/22 08:17 Pulse Rate 81 07/30/22 08:17 Respiratory Rate 16 07/30/22 08:17 Blood Pressure 128/93 07/30/22 08:17 Blood Pressure Bhargavi n 104 07/30/22 08:17 Pulse Oximetry 100 07/30/22 08:17 Oxygen Delivery Me thod 07/30/22 08:17 Exam: Pre-Anes Outpt Exam: alert, oriented x 3, clear to auscultation bilaterally and regular rate & rhythm Cardiac Studies: No Data to Display
--- NOTE | 2022-07-30 09:16 | W.PM.OPSUD ---
Surgery/Procedure H&P Update DATE OF PROCEDURE: July 30, 2022 DATE H&P PERFORMED: 07/28/22 H&P UPDATE INFORMATION: I have reviewed H&P completed within last 30 days, I have examined patient prior to procedure and No changes to prior documentation PREOP DIAGNOSIS: Desire permanent sterilization PLANNED PROCEDURE: Operation Date: 07/30/22 09:20 Proposed Procedures p Laparoscopic bilateral salpingectomy 67874,Z30.2(Bilateral) - Jose Rosario MD
[2022-07-30] MEDS: fentaNYL 50 mcg/mL INJ 2mL IVP ×2 (09:25→11:12)
[2022-07-30] MEDS: ceFAZolin 2,000 MG in sodium chloride 0.9% (plus) 50 ML 100 MG IV (09:33)
--- NOTE | 2022-07-30 10:48 | PM.OP ---
Operative Report Date of procedure: July 30, 2022 Pre-op diagnosis: Preop Diagnosis Desire permanent sterilization Post-op diagnosis: Same as above Post-op findings: Normal pelvic organs. Right ovarian simple cyst Specimens removed/disposition: Left and right fallopian tube Surgeon: Jose Rosario MD Estimated blood loss (mL): 5 IV fluids (mL): 600 Urine output (mL): 200 Complications: None Findings: Normal pelvic organs Brief History: 36-year-old female desires permanent sterilization Procedure: After informed consent, the patient was taken to the operating room where general anesthesia was administered. She was placed in the dorsal lithotomy position and prepped and draped in sterile fashion. Pre-Procedure Time-Out verifying the correct patient identity, correct procedure verified with consent, correct site and side, correct patient position, availability of correct implants and any special equipment or requirements was performed and acknowledge by the OR team. The patient was examined under anesthesia and found to have a normal uterus with normal adnexa. A weighted speculum was placed in the vagina, and the anterior lip of cervix was grasped with the single toothed tenaculum. A uterine manipulator was advanced into the endocervical canal and uterus. The tenaculum was removed after uterine manipulator was secured. The speculum was removed from the vagina. An intraumbilical incision was made with a scalpel. While tenting up on the abdomen, a Verres needle was admitted into the intra-abdominal cavity. A saline drop test was performed and noted to be within normal limits. Pneumoperitoneum was attained with 4 liters of carbon dioxide. The Verres needle was removed. A 5 mm Opitc view trocar and sleeve were admitted into the abdomen and laparoscopic confirmation of location was achieved. A second incision was made 3 cm above the symphysis pubis, and a 5 mm trocar sleeves were admitted into the abdomen under direct laparoscopic visualization without complication. A survey revealed normal abdominal anatomy. A 5 mm blunt probe was advanced through the second trocar sleeve, and light manipulation of ovaries and uterus to assess the posterior aspects was performed. The pelvic survey shows normal uterus, left and right adnexa. The right ovary was noted with a follicular cyst. The patient was placed into Trendelenburg position. The fallopian tubes were inspected bilaterally and the fimbriated ends of the fallopian tubes were visualized bilaterally. Attention was then directed to the right side. The fallopian tube and mesosalpinx were grasped and the underlying mesosalpinx was cauterized and cut using the Enseal device. Serial cauterization and cutting was used to separate the fallopian tube from the underlying mesosalpinx until it could be amputated cutting it approximated 2 cm from the cornua. Attention was then turned to the contralateral fallopian tube, which was removed in similar fashion. Both specimens were removed through the trocar and sent to pathology. The instruments were removed. The suprapubic trocar port was removed under direct visualization insuring good hemostasis. The carbon dioxide was allowed to escape from the abdomen. The intraumbilical trocar sleeve was withdrawn under visualization with laparoscope in the sleeve to insure hemostasis. The skin incisions were closed with 3-O Monocryl subcuticular stich and Dermabond. The instruments were removed from the vagina, and excellent hemostasis was noted. The patient tolerated the procedure well, and sponge, lap and needle count were correct times two. The patient was taken to the recovery room in good condition.
[2022-07-30] MEDS: meperidine 50 mg/mL INJ 12.5 MG IVP (11:05)
[2022-07-30] MEDS: HYDROmorphone 1 mg/mL INJ 1 mL 0.5 MG IVP (11:23)
[2022-07-30] MEDS: HYDROcodone-acetaminophen 5-325 mg Tablet 1 TAB PO (12:04)
[2022-07-30 12:18] LABS: OR HCG Qualitative Urine Negative (Negative)
--- NOTE | 2022-07-30 13:38 | ANE.PACU2 ---
Inpatient post-anesthesia follow up: Airway intact: Yes Vital signs: Temperature 99 F Pulse Rate 69 Respiratory Rate 16 Blood Pressure 136/91 Pulse Oximetry 98 Oxygen Delivery Me thod Room Air Oxygen Flow Rate 2 Fraction of Inspir ed Oxygen Hydration adequate: Yes Nausea and vomiting: No Pain level: 1 Mental status: Baseline
== END 2022-07-30 12:45 | disposition home or self-care (01) ==
PROVIDERS: Anesthesiology; PCP Physician Assistant; Visit Provider Obstetrics & Gynecology
PROC: (CPT 58661; principal; 2022-07-30 09:10)
DX: Z30.2 Encounter for sterilization (principal); N83.291 Other ovarian cyst, right side; M06.9 Rheumatoid arthritis, unspecified
CPT/HCPCS: 58661; 80053; 81001; 81025; 84703; 85025; 86850; 86900; 88302; J0690; J1170; J1200; J2175; J2250; J2405; J2704; J2710; J3010; J3490; J7030; J7040

== ENCOUNTER 2022-10-03 09:35 | Day surgery (SDC) | payer BC, MEDICAID, SELFPAY ==
[2022-10-01 09:35] VITALS: BMI 27.3
[2022-10-03] VITALS (8 sets, daily range): BP systolic 122–138; BP diastolic 68–92; PULSE 75–89; RESP 14–21; TEMP 36.2–36.8; O2SAT 97–100
[2022-10-03] MEDS: sodium chloride 0.9% 1,000 ML 30 ML IV (10:33)
--- NOTE | 2022-10-03 10:45 | W.PM.OPSUD ---
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
[2022-10-03 11:00] LABS: OR HCG Qualitative Urine Negative (Negative)
--- NOTE | 2022-10-03 11:00 | ANES.PREANE2 ---
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, Lumbar Radiculopathy, Right Foot Drop Operation Date: 10/03/22 11:00 Proposed Procedures p Open Spine Decompression: L4/5 L5/S1 87152/29739 M51.36(Not Applicable) - Derian Landaverde, DO Familial anesthetic complications: none Was Beta Josefina taken within 24 hours: N/A Was Clonidine taken within 24 hours: N/A Last intake: Intake Last Liquid Date 10/02/22 Last Liquid Time 21:00 Last Solid Date 10/02/22 Last Solid Time 20:00 Last Intake: 21:00 Social No alcohol and No tobacco Exam alert, oriented x 3, clear to auscultation bilaterally and regular rate & rhythm Airway Submandibular: within normal limits Cervical ROM: within normal limits Mallampati: Class II Dentition: full Pulmonary None reported CV/HEM None reported None reported Hepatic None reported GI None reported Metabolic None reported Musc/skel Lower Back Pain and Osteoarthritis/DJD Neuropsych Anxiety and Depression Anesthetic Plan ASA status: 2 Anesthesia: General Medications/Allergies Home Medications Medication Instructions Recorded Confirmed Last Taken Type multivitamin 1 tab PO DAILY 05/02/21 10/01/22 10/03/22 05:00 History venlafaxine 75 mg tablet 150 mg PO DAILY 02/10/22 10/01/22 10/03/22 05:00 History cholecalciferol (vitamin D3) 50 50 mcg PO DAILY 07/28/22 10/01/22 10/03/22 05:00 History mcg (2,000 unit) capsule meloxicam 15 mg tablet 15 mg PO DAILY #90 tabs 08/21/22 10/01/22 10/01/22 Rx hydrocodone 5 mg-acetaminophen 325 1 tab PO Q4H PRN pain 5 days #20 09/25/22 10/01/22 10/03/22 05:00 Rx mg tablet tabs Allergies Allergy/AdvReac Type Severity Reaction Status Date / Time No Known Allergies Allergy Verified 10/03/22 09:56 Current Medications Generic Name Dose Route Start Last Admin Trade Name Freq PRN Reason Stop Dose Admin Sodium Chloride 1,000 mls @ 30 mls/hr 10/03/22 09:45 10/03/22 10:33 Sodium Chloride 0.9% IV 10/04/22 09:44 30 mls/hr .Q24H KVNG Administration PFSH Anesthesia Medical History (Updated 09/23/22 @ 12:47 by Donald Biggs PA-C) History of depression Patient denies significant medical history denies htn,dm,thyroid,dvt/pe,herpes examination following vaginal delivery Surgical History (Updated 10/01/22 @ 09:33 by Judy Teague) S/P tonsillectomy (~1994) as a child Family History Mother Hyperlipidemia Thyroid condition Hypertension Diabetes Grandmother Diabetes maternal Breast cancer maternal Stroke maternal Grandfather Hyperlipidemia maternal Hypertension maternal Denies family history of Anesthesia complication Social History Smoking and tobacco status: never smoked Alcohol intake: never Female Reproductive History Date of last menstrual period: 09/23/22 Data Anesthesia Cardiac Studies: No Data to Display
[2022-10-03] MEDS: ceFAZolin 2,000 MG in sodium chloride 0.9% (plus) 50 ML 100 MG IV (11:01)
[2022-10-03] MEDS: lidocaine-epi 2% 20 mL INJ INJECTION (11:23)
[2022-10-03] MEDS: vancomycin 1,000 MG SDV 1000 MG XX (11:36)
--- NOTE | 2022-10-03 12:30 | P.OP_ITS ---
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 L4/5 laminectomy with partial facetectomies 2. L5/S1 laminectomy with partial facetectomies Surgeon: Derian Landaverde Shrimp Boat Captain: Donald Biggs Shrimp Boat Captain: The ophthalmology surgical technician, Donald Biggs, PAC was needed for his expertise under the microscope. He was important and necessary throughout the procedure to complete in a safe and timely manner. He assisted with patient positioning prepping and draping tissue retraction suctioning of the operative field protection of the dural sac and tissue closure Estimated blood loss (mL): 50 Procedure: 1. L4/5 laminectomy with partial facetectomies 2. L5/S1 laminectomy with partial facetectomies Patient was brought to the operative suite after going anesthesia was placed in prone position. All areas appear well-padded. Patient was prepped draped also fashion. Skin skin is made of the L4-5 level. Subperiosteal dissection made out to the facet joints of L4-5 L5-S1 bilaterally. Retractors were placed. The levels were confirmed under C-arm guidance. The rongeur was then brought in by the spinous processes from L5 and L5 for partially. High-speed bur was then used to perform laminectomies at L5 and L4. The Kerrison rongeur was then used to remove the remaining lamina. An extension was brought to the facets bilaterally of L5-S1. High-speed bur was used to take down the L5-S1 facet medially this was done bilaterally. Then the ligamentum flavum was taken down from L5-S1 and the medial aspect of facet joints were taken down from L5-S1 bilaterally. This was done using Kerrison rongeur after the bone was thinned out with a high-speed bur. The S1 nerve root was traced out the along the S1 pedicle and the L5 nerve root was traced out the L5-S1 foramen. Extension was brought to the L for lamina high-speed bur again was used to thin out the lamina and then Kerrison rongeur was used to perform a laminectomy bilaterally. The medial aspect of the facet joints were taken down bilaterally at L4-5. This was done with a high-speed bur Kerrison rongeurs. Ligamentum flavum was taken down from L4-L5. Next tension was brought to the disc. Leobardo'Nikkie nerve retractor was then used to expose the disc at L4-5. Curette was used to cut through the outer annulus. And then micropituitary was used to remove the disc fragments. There was a significantly large amount of disc fragments that were removed. The disc space was irrigated out several times and multiple free fragments were removed this displaces irrigated until there were no more free fragments. Once all the 3 fragments were removed the nerve roots. Much more free. L4 nerve roots were traced out the L4-5 foramen bilaterally and the L5 nerve was traced around the L5 pedicle bilaterally. Wounds irrigated wounds closed in layered fashion with 0 Vicryl 2-0 Vicryl and Monocryl suture. Sterile dressings were applied patient was transferred to the PACU in stable condition.
--- NOTE | 2022-10-03 12:40 | XR_ITS ---
WS: [id number] XR lumbar spine 1V [id number] REASON FOR EXAM: OR PICS FINDINGS: L4-L5 disc space localized by clamped and surgical instrument. XR/XR lumbar spine 1V [id number] IMPRESSION: Lumbar localization in surgery as above.
[2022-10-03] MEDS: HYDROcodone-acetaminophen 5-325 mg Tablet 1 TAB PO (13:10)
--- NOTE | 2022-10-03 13:58 | SUR.PHASEII ---
patient reports numbness from her knee down on the left side. dr. garcía notified to come see patient.
--- NOTE | 2022-10-03 14:13 | ANE.PACU2 ---
Inpatient post-anesthesia follow up: Airway intact: Yes Vital signs: Temperature 97.8 F Pulse Rate 76 Respiratory Rate 18 Blood Pressure 131/68 Pulse Oximetry 100 Oxygen Delivery Me thod Room Air Oxygen Flow Rate 6 Fraction of Inspir ed Oxygen Hydration adequate: Yes Nausea and vomiting: No Pain level: 3 Mental status: Baseline
== END 2022-10-03 14:16 | disposition home or self-care (01) ==
PROVIDERS: Physician Assistant; PCP Physician Assistant; Visit Provider Orthopaedic Surgery
PROC: (CPT 63001; principal; 2022-10-03 10:50)
DX: M51.16 Intervertebral disc disorders with radiculopathy, lumbar region (principal); M21.371 Foot drop, right foot
CPT/HCPCS: 63030; 63035; 72020; 76000; 81025; 84703; J0690; J1100; J1170; J2704; J2710; J3010; J3370; J3490; J7030

== ENCOUNTER 2022-10-28 16:37 | Outpatient (CLI) | payer BC, MEDICAID, SELFPAY ==
[2022-10-28 17:57] LABS: Basophils % 0.1 %; Eosinophils # 0.1 10^3/uL (0.0-0.8); Hematocrit 38.3 % (37.0-47.0); Hemoglobin 13.2 g/dL (11.5-15.3); Lymphocytes # 1.5 10^3/uL (0.8-4.8); Lymphocytes % 18.6 %; Mean Corpuscular HGB Conc 34.5 g/dL (30.0-36.0); Mean Corpuscular Hemoglobin 32.4 pg (28.0-34.0); Mean Corpuscular Volume 94.1 fl (81-99); Mean Platelet Volume 9.5 fL (7.4-10.4); Monocytes # 0.5 10^3/uL (0.2-0.9); Monocytes % 5.5 %; Neutrophils # 6.14 10^3/uL (1.8-7.7); Neutrophils % 74.6 %; Nucleated Red Blood Cells % 0 %; Platelet Count 248 10^3/cmm (130-400); Red Blood Count 4.07 10^6/uL (4.1-5.3); Red Cell Distribution Width 12.6 % (12.1-15.1); White Blood Count 8.2 10^3/uL (4.0-10.0)
[2022-10-28 18:01] LABS: Erythrocyte Sedimentation Rate 9 mm/hr (0-15)
[2022-10-28 18:14] LABS: Alanine Aminotransferase 12 U/L (0-33); Albumin Level 4.5 g/dL (3.5-5.2); Alkaline Phosphatase 72 U/L (35-105); Aspartate Amino Transferase 19 U/L (0-32); Blood Urea Nitrogen 17 mg/dL (6-20); Carbon Dioxide 26 mmol/L (22-29); Chloride 101 mmol/L (98-107); Globulin 2.9 g/dL (1.3-4.6); Glomerular Filtration Rate 112.5 mL/min (90-130); Glucose 92 mg/dL (65-115); Osmolality Calculated 291 mOsm/kg (285-295); Sodium 140 mmol/L (136-145); Total Bilirubin 0.2 mg/dL (0.15-1.2); Total Protein 7.4 g/dL (6.6-8.7)
== END 2022-10-28 16:38 | disposition home or self-care (01) ==
LOC: LAB 16:42
PROVIDERS: PCP Physician Assistant; Visit Provider Internal Medicine
DX: M25.50 Pain in unspecified joint (principal); R76.8 Other specified abnormal immunological findings in serum
CPT/HCPCS: 36415; 80053; 85025; 85651; 86140

== ENCOUNTER 2023-01-04 09:41 | Emergency (ER) | payer BC, MEDICAID, SELFPAY ==
[2023-01-04 09:43] VITALS: BP 154/102; PULSE 92; RESP 18; TEMP 37; O2SAT 99; BMI 26.6
--- NOTE | 2023-01-04 10:03 | ED_ITS ---
HPI - Female Genitourinary General: Chief complaint: Urogenital-Female Stated complaint: STD test needed Time Seen by Provider: 01/04/23 09:43 History of Present Illness: Patient is a 37-year-old female that comes to the ED with concern for STD. Patient states that she developed a rash on her vagina about 3 days ago. She describes the rash as tiny raised bumps on the external part of her vagina. She also reports having a yellow vaginal discharge and some pelvic pain. She states that the pelvic pain is mild. She started developing a fever yesterday and also had 1 today but took some Tylenol to treated. Denies any past STDs. Patient does endorse being sexually active recently and having unprotected sex. Patient endorses having some body aches and chills as well. Associated symptoms: Reports vaginal discharge (Yellow); Deny abdominal pain, headache(s) or nausea Review of Systems Const: Reports: fever(s), chills and body aches; Denies: fatigue Eyes: Denies: change in vision or eye discomfort ENMT: Denies: throat pain, odynophagia, nasal discharge or nasal congestion Card: Denies: chest pain, palpitations, edema, swelling of feet/ankles, dyspnea on exertion or orthopnea Resp: Denies: dyspnea, productive cough or non-productive cough GI: Denies: abdominal pain, nausea, vomiting, diarrhea, constipation or hematochezia : Reports: genital lesions (Rash on vagina), vaginal discharge (Yellow) and pelvic pain; Denies: flank pain, dysuria or hematuria Musc: Denies: neck pain, back pain or extremity swelling Skin/Breast: Denies: rash or new lesions Neuro: Denies: headache(s), numbness in extremities or weakness in extremities PFS ED PFSH: Medical History History of depression Patient denies significant medical history denies htn,dm,thyroid,dvt/pe,herpes examination following vaginal delivery Surgical History S/P tonsillectomy (~1994) as a child Family History Mother Hyperlipidemia Thyroid condition Hypertension Diabetes Grandmother Diabetes maternal Breast cancer maternal Stroke maternal Grandfather Hyperlipidemia maternal Hypertension maternal Denies family history of Anesthesia complication Social History Smoking and tobacco status: never smoked Quit status (tobacco): has quit using tobacco Year quit tobacco: 2011 Former quit date comment: smoked socially Alcohol intake: never Substance/Drug Use: never Physical Exam Const: COMMON NORMALS: no acute distress, patient oriented x3, healthy appearing and alert HENMT: COMMON NORMALS: normocephalic HEAD & SCALP: normocephalic MOUTH: Normal oral and palatal mucosa present THROAT: posterior oropharynx normal and uvula midline Neck/C-Spine: COMMON NORMALS: supple GENERAL: Yes normal visual inspection Resp: COMMON NORMALS: normal respiratory effort, No retractions, No use of accessory muscles and clear to auscultation bilaterally AUSCULTATION: clear to auscultation bilaterally Cardio: COMMON NORMALS: regular rate, regular rhythm, S1 normal heart sound present, S2 normal heart sound present, No gallops present (Cardio), No clicks present (Cardio), No murmurs present (Cardio) and Peripheral pulses 2+ throughout RATE: regular rate RHYTHM: regular rhythm HEART SOUNDS: S1 normal heart sound present and S2 normal heart sound present PERIPHERAL PULS ES: Peripheral pulses 2+ throughout GI: COMMON NORMALS: Normal to inspection, nondistended, normoactive bowel sounds present, Soft to palpation, non-tender and no masses PALPATION: Yes Soft to palpation : COMMON NORMALS: Yes no CVA tenderness BLADDER/KIDNEY EXAM: Yes no CVA tenderness EXTERNAL FEMALE EXAM: Yes lesion OTHER: External exam performed on patient. Bree the nurse was present as outsole caser at that time. Patient does have multiple small papule clear fluid like vesicular lesions on the labia bilaterally. Findings suggestive of genital h erpes. No vaginal discharge seen. Back/Pelvis: COMMON NORMALS: no CVA tenderness Extremity: COMMON NORMALS: normal to inspection Neuro: COMMON NORMALS: patient oriented x3 SENSORIUM/ORIENTATION: Yes alert GAIT: Yes Normal gait present Skin: GENERAL SKIN EXAM: dry skin Course Vital Signs: Vital signs: Vital Signs Temperature 98.6 F 01/04/23 09:43 Pulse Rate 92 01/04/23 09:43 Respiratory Rate 18 01/04/23 09:43 Blood Pressure 154/102 01/04/23 09:43 Pulse Oximetry 99 01/04/23 09:43 Oxygen Delivery Me thod Room Air 01/04/23 09:43 MDM - Female Medical Decision Making Patient is a 37-year-old female that comes to the ED with concern for STD. Jordon ramses states that she developed a rash on her vagina about 3 days ago. She describes the rash as tiny raised bumps on the external part of her vagina. She also reports having a yellow vaginal discharge and some pelvic pain. She states that the pelvic pain is mild. She started developing a fever yesterday and also had 1 today but took some Tylenol to treated. Denies any past STDs. Patient do es endorse being sexually active recently and having unprotected sex. Patient endorses having some body aches and chills as well. Vitals are stable. Patient appears nontoxic in no acute distress or pain. External exam performed on patient. Bree the nurse was present as outsole caser at that time. Patient does have multiple small papule clear fluid like vesicular lesions on the labia bilaterally. Findings suggestive of genital herpes. No vaginal discharge seen. Chlamydia and gonorrhea test pending. HIV was negative. UA was unremarkable and hCG was negative. Given patient's history and visual exam findings she was diagnosed with genital herpes simplex and screening examination for STDs. She was given prophylactic treatment for gonorrhea and chlamydia via shot of Rocephin and single dose of azithromycin. She was sent home with a prescription for acyclovir and a pain med. Told to follow-up with her PCP within a week for reevaluation. She was told to repeat HIV testing in about 3 to 4 weeks at primary care doctor's office. She was instructed on telling her sexual partners to have them follow-up with their primary care doctors for further evaluation. Return to ED precautions given. Patient understood and agreed with plan. Lab Data I reviewed the patient's lab results. Laboratory Results HCG, Qual Negative (Negative) 01/04/23 10:10 Urine Color Yellow (Yellow) 01/04/23 10:10 Urine Appearance Clear (CLEAR) 01/04/23 10:10 Urine pH 6 (5-7) 01/04/23 10:10 Ur Specific [place] 1.010 (1.005-1.030) 01/04/23 10:10 Urine Protein 1+ (Negative) H 01/04/23 10:10 Urine Glucose (UA) Norm (Normal) 01/04/23 10:10 Urine Ketones 2+ (Negative) H 01/04/23 10:10 Urine Blood Neg (Negative) 01/04/23 10:10 Urine Nitrate Negative (Negative) 01/04/23 10:10 Urine Bilirubin Neg (Negative) 01/04/23 10:10 Urine Urobilinogen Norm mg/dL (Negative) 01/04/23 10:10 Ur Leukocyte Esterase Trace (Negative) H 01/04/23 10:10 Urine RBC 0-4 /hpf (0-2) H 01/04/23 10:10 Urine WBC 0-4 /hpf (0-5) H 01/04/23 10:10 Ur Squamous Epith Cells 0-4 /hpf (0-5) H 01/04/23 10:10 Amorphous Sediment 1+ /hpf 01/04/23 10:10 Urine Bacteria Trace /hpf (NONE) 01/04/23 10:10 Urine Mucus Trace /hpf 01/04/23 10:10 HIV 1&2 Ab & HIV 1 Ag Non-reactive (Non-Reactiv) 01/04/23 10:15 HIV 1&2 Antibody Non-reactive (Non-Reactiv) 01/04/23 10:15 Discharge Plan Discharge Patient Disposition: Home Clinical Impression: Screening examination for STD (sexually transmitted disease) Genital herpes simplex Qualifiers: Herpes simplex infection site: perianal skin Qualified Code(s): A60.1 - Herpesviral infection of perianal skin and rectum Condition: Stable Prescriptions: New acyclovir 400 mg tablet 400 mg PO Q8H 10 Days Qty: 30 0RF No Action multivitamin Tablet 1 tab PO DAILY venlafaxine 75 mg tablet 150 mg PO DAILY cholecalciferol (vitamin D3) 50 mcg (2,000 unit) capsule 50 mcg PO DAILY tramadol 50 mg tablet 50 mg PO Q8H PRN (Reason: pain) Qty: 30 0RF meloxicam 15 mg tablet 15 mg PO DAILY Qty: 90 1RF Discharge Orders: Discharge ED (Routine); Ordered 01/04/23 Ordered By: Dhruv Quintero Referrals: Aster Payne PA [Primary Care Provider] - Discharge Diet: Regular Discharge Activity: Limit activity as instructed Patient Instructions: Genital Herpes - Female Activity Restrictions/Additional Instructions: Follow-up with medical provider as directed in the next 5 to 7 days for reevaluation. Tell sexual partner(s) to go get evaluated by their primary care doctor. Take medications as prescribed. Have HIV blood work test done again in about 4 weeks at your primary care doctor's office. Gonorrhea and Chlamydia tests are pending and you can check your patient portal for test results in the next 3 to 4 days. Remember that you are given prophylactic treatment for gonorrhea and chlamydia here in the ED so if test does come back positive you do not need any further treatment and discuss with your primary care doctor. return to the ER or your medical provider if condition worsens. Please read and understand discharge instructions. Thank you for choosing [facility] for your healthcare needs today. Please realize this is an emergency room and that we are providing you with a medical screening exam and this may not be complete and all inclusive of all the testing and or work up that you may need to determine your ailment or severity of your illness. It is very important that you follow up as instructed or that you return to the Emergency Department should you have concerns or if your condition changes or worsens in any way. Coding Level of Care Code ED Furniture Manager for Sandar Massey
[2023-01-04 10:36] LABS: HCG Qualitative Urine. Negative (Negative)
[2023-01-04 10:39] LABS: Add Urine Culture? No; Add Urine Microscopic? YES; Amorphous Sediment Urine 1+ /hpf; Bacteria Urine TRACE /hpf; Bilirubin Urine Neg (Negative); Blood Urine Neg (Negative); Glucose Urine UA Norm (Normal); Ketones Urine 2+ (Negative); Leukocyte Esterase Urine Trace (Negative); Mucus Urine TRACE /hpf; Nitrate Urine Negative (Negative); Protein Urine 1+ (Negative); RBC Urine 0-4 /hpf (0-2); Squamous Epithelial Cell Urine 0-4 /hpf (0-5); Urine Appearance Clear (CLEAR); Urine Color Yellow (Yellow); Urobilinogen Urine Norm (Negative); WBC Urine 0-4 /hpf (0-5); pH Urine 6 (5-7)
[2023-01-04 11:09] LABS: HIV 1 & 2 Antibody Non-Reactive (Non-Reactiv); HIV 1 & 2 Antigen Non-Reactive (Non-Reactiv)
[2023-01-04] MEDS: azithromycin 250 mg Tablet 1000 MG PO (11:40)
[2023-01-04] MEDS: cefTRIAXone 500 MG in water for injection-sterile 1 ML IM (11:41)
== END 2023-01-04 11:57 | disposition home or self-care (01) ==
PROVIDERS: Emergency Provider Physician Assistant; PCP Physician Assistant
DX: A60.1 Herpesviral infection of perianal skin and rectum (principal); Z87.891 Personal history of nicotine dependence
CPT/HCPCS: 36415; 81001; 81025; 87491; 87591; 87806; 96372; 99284; J0696; Q0144

== ENCOUNTER → 2023-03-05 10:11 | Outpatient (BNVA) | payer BC, MEDICAID, SELFPAY | PROVIDERS: PCP Physician Assistant; Visit Provider Internal Medicine | DX: M05.9 Rheumatoid arthritis with rheumatoid factor, unspecified (principal); M46.1 Sacroiliitis, not elsewhere classified; M54.50 Low back pain, unspecified; G62.9 Polyneuropathy, unspecified | CPT/HCPCS: 36415; 80053; 82550; 82607; 83735; 84100; 84443; 85025; 85651; 86140 ==

== ENCOUNTER → 2023-05-21 13:20 | Outpatient (BNVA) | payer BC, MEDICAID, SELFPAY | PROVIDERS: PCP Physician Assistant; Visit Provider Obstetrics & Gynecology | DX: Z30.9 Encounter for contraceptive management, unspecified (principal) | CPT/HCPCS: 81025 ==